=== PATIENT | female | born 1980 | race Caucasian/White ===

== ENCOUNTER 2018-09-08 16:24 | Emergency (ER) | payer MEDICAID ==
[2018-09-08] MEDS: KETOROLAC 30 MG INJ IM (16:59)
== END 2018-09-08 17:12 | disposition home or self-care (01) ==
LOC: FTE 16:24
DX: M26.622 Arthralgia of left temporomandibular joint (principal)
CPT/HCPCS: 81025; 96372; 99284-25

== ENCOUNTER 2018-09-10 04:45 | Emergency (ER) | payer MEDICAID | END 2018-09-10 05:38 | disposition home or self-care (01) | LOC: FTE 04:45 | DX: H60.502 Unspecified acute noninfective otitis externa, left ear (principal) | CPT/HCPCS: 99283 ==

== ENCOUNTER 2018-11-02 17:25 | Emergency (ER) | payer MEDICAID | END 2018-11-02 18:00 | disposition home or self-care (01) | LOC: E/R 18:00 | DX: H60.8X2 Other otitis externa, left ear (principal) | CPT/HCPCS: 99283; Z7502 ==